=== PATIENT | male | born 1940 | race Caucasian/White ===

== ENCOUNTER → 2016-12-30 | Outpatient (CLI) | payer OTHER, BC | LOC: FCPNEURO 21:00 | PROVIDERS: ATTEND Internal Medicine Sleep Medicine | DX: G47.33 Obstructive sleep apnea (adult) (pediatric) (principal); G47.61 Periodic limb movement disorder ==

== ENCOUNTER → 2016-12-31 | Outpatient (CLI) | payer OTHER, BC | LOC: FIMAGING 14:43 → EDSTATUS 14:45 | DX: M79.662 Pain in left lower leg (principal) ==

== ENCOUNTER 2018-03-07 11:00 | Inpatient (IN) | payer OTHER, BC ==
[2018-03-23] MEDS ORDERED: ROPIVACAINE 0.2% 80 MG, EPINEPHrine 0.2 MG, KETOROLAC TROMETHAMINE 30 MG in SYRINGE 0 ML IU ONE (06:00)
[2018-03-23] MEDS ORDERED: TRANEXAMIC ACID 3,000 MG in NS (SYRINGE) 50 ML IRR ONE (06:00)
[2018-03-23] MEDS ORDERED: TRANEXAMIC ACID 3,000 MG/50 ML BAG IRR ONE (06:52)
[2018-03-23] MEDS ORDERED: VANCOMYCIN 1 GM VIAL ONE (06:52)
--- NOTE | 2018-03-23 07:12 | PDHPUP ---
History & Physical Update H&P update statement: This history and physical update is based on an assessment of the patient which was completed after admission or registration (within 24 hours), but prior to the surgery/procedure. H&P update: H&P reviewed & patient examined, no change in patient's condition since H&P completed
[2018-03-23] MEDS ORDERED: DEXAMETHASONE 4 MG/ML VIAL IVP ONE (09:39)
[2018-03-23] MEDS ORDERED: ACETAMINOPHEN 325 MG TAB PO ONE (09:39)
[2018-03-23] MEDS ORDERED: ceFAZolin 2 GM/DEXTROSE 100 ML IV ONE (09:39)
[2018-03-23] MEDS ORDERED: FAMOTIDINE 20 MG TAB PO ONE (09:39)
[2018-03-23] MEDS ORDERED: LR 1,000 ML IV ONE (10:01)
[2018-03-23] MEDS ORDERED: MIDAZOLAM 2 MG/2 ML VIAL ONE (10:48)
[2018-03-23] MEDS ORDERED: MIDAZOLAM 2 MG/2 ML VIAL IVP ONE (10:52)
--- NOTE | 2018-03-23 10:54 | PDANEPAE ---
ANE History of Present Illness knee ANE Past Medical History - Cardiovascular History Hx Hypertension: Yes Hx Arrhythmias: Yes Hx Chest Pain: No Hx Coronary Artery / Peripheral Vascular Disease: No Hx CHF / Valvular Disease: No Hx Palpitations: No Cardiovascular History Comment: afib - Pulmonary History Hx COPD: No Hx Asthma/Reactive Airway Disease: No Hx Recent Upper Respiratory Infection: No Hx Oxygen in Use at Home: No Hx Sleep Apnea: Yes Sleep Apnea Screening Result - Last Documented: Positive Pulmonary History Comment: tao positive uses cpap - Neurologic History Hx Cerebrovascular Accident: No Hx Seizures: No Hx Dementia: No - Endocrine History Hx Diabetes: No Hypothyroid: No Hyperthyroid: No Obesity: mild Endocrine History Comment: hx of thyroid CA with thyroidectomy and parathyroidectomy - Renal History Hx Renal Disorders: No - Liver History Hx Hepatic Disorders: Yes Hepatic History Comment: HEPATITIS A - Neurological & Psychiatric Hx Hx Neurological and Psychiatric Disorders: No - Cancer History Hx Cancer: Yes Cancer History Comment: thyroid - Congenital Disorder History Hx Congenital Disorders: No - GI History GERD: mild Hx Gastrointestinal Disorders: Yes Gastrointestinal History Comment: Acid reflux - controlled - Other Health History Other Health History: wears glasses. bilateral hearing aides. full dentures. - Chronic Pain History Chronic Pain: Yes (right knee) - Surgical History Prior Surgeries: cataracts- bilaterally 2018. 02/26/16 right knee scope with Luis Alfredo [place] [facility] [place]. thyroidectomy and parathyroidectomy 30 yrs ago. tonsillectomy as a child ANE Review of Systems Review of Systems: - Exercise capacity Exercise capacity: >=4 METS METS (RN): 4 METS ANE Patient History - Allergies Allergies/Adverse Reactions: fluorescein Allergy (Verified 02/26/18 10:24) Swelling/neck,face,throat Penicillins Allergy (Verified 03/21/18 14:52) Unknown shellfish derived Allergy (Verified 03/23/18 09:17) Swelling/neck, face, throat Sulfa (Sulfonamide Antibiotics) Allergy (Verified 02/26/18 10:24) Rash iodine Allergy (Uncoded 02/26/18 10:24) Swelling/neck,face,throat IV contrast Allergy (Uncoded 02/26/18 10:24) Swelling/neck,face,throat peanuts Allergy (Uncoded 02/26/18 10:24) Anaphylaxis - Home Medications Home medications: home medication list seen and reviewed Home Medications: Levothyroxine [Synthroid 100 mcg (RX)] 100 mcg PO DAILY06 11/16/13 [Last Taken 03/23/18 05:20] Aspirin [Aspirin 81mg (*)] 81 mg PO DAILY AT 6PM 02/20/18 [Last Taken 1 Month Ago ~02/21/18] Cholecalciferol Vit D3 [Vitamin D3 (*)] 1,000 units PO DAILY AT 6PM 02/20/18 [ Last Taken 1 Month Ago ~02/21/18] EPINEPHrine [Epipen 0.3 MG] 0.3 mg IM ONCE PRN 02/20/18 [Last Taken Unknown] MAG CARB/AL HYDROX/ALGINIC AC [Gaviscon Liquid] 15 ml PO Q6H PRN 02/20/18 [Last Taken 03/21/18] Metoprolol Tartrate [Lopressor 25 mg (*)] 12.5 mg PO BID 02/20/18 [Last Taken 06:20] Ranitidine HCl 150 mg PO BID 02/20/18 [Last Taken 03/23/18 06:20] - NPO status NPO Since - Liquids (Date): 03/23/18 NPO Since - Liquids (Time): 07:30 NPO Since - Solids (Date): 03/22/18 NPO Since - Solids (Time): 22:00 - Smoking Hx Smoking Status: Former smoker - Family Anes Hx Family Hx Anesthesia Complications: none ANE Labs/Vital Signs - Vital Signs Blood Pressure: 125/98 Heart Rate: 74 Respiratory Rate: 18 O2 Sat (%): 96 Height: 173.99 cm Weight: 97.522 kg ANE Physical Exam - Airway Mallampati Score: Class 2 Mouth exam: normal dental/mouth exam - Pulmonary Pulmonary: no respiratory distress - Cardiovascular Cardiovascular: regular rate and rhythym - ASA Status ASA Status: II ANE Anesthesia Plan Anesthesia Plan: spinal Regional Anesthesia: adductor canal FNB
[2018-03-23] MEDS ORDERED: PROPOFOL/EMULSION 500 MG/50 ML BOTTLE IV ONE (10:56)
[2018-03-23] MEDS ORDERED: LIDOCAINE 2% 5 ML SDV ONE (10:56)
[2018-03-23] MEDS ORDERED: BUPIVACAINE/DEXTROSE 7.5MG/ML 2 ML SPINAL AMP SP ONE (10:56)
[2018-03-23] MEDS ORDERED: PROPOFOL 200 MG/20 ML VIAL ONE (11:57)
[2018-03-23] MEDS ORDERED: ROPIVACAINE HCL 150 MG/30 ML INJ ONE (11:58)
[2018-03-23] MEDS ORDERED: CYCLOBENZAPRINE 10 MG TAB PO PRN (12:27)
[2018-03-23] MEDS ORDERED: POLYETHYLENE GLYCOL 3350 17 GM PKT PO PRN (12:27)
[2018-03-23] MEDS ORDERED: PROMETHAZINE HCL 25 MG SUPPR PR PRN (12:27)
[2018-03-23] MEDS ORDERED: TEMAZEPAM 15 MG CAP PO PRN (12:27)
[2018-03-23] MEDS ORDERED: PROMETHAZINE HCL 25 MG/ML INJ IVP PRN (12:27)
[2018-03-23] MEDS ORDERED: LACTULOSE 20 GM/30 ML UDCUP PO PRN (12:27)
[2018-03-23] MEDS ORDERED: diphenhydrAMINE 25 MG CAP PO PRN (12:27)
[2018-03-23] MEDS ORDERED: ONDANSETRON 4 MG/2 ML VIAL IVP PRN ×2 (12:27→12:41)
[2018-03-23] MEDS ORDERED: ONDANSETRON DISINTEGRATING 4 MG TAB PO PRN (12:27)
[2018-03-23] MEDS ORDERED: DIPHENOXYLATE/ATROPINE LOMOTIL 1 TAB PO PRN (12:27)
[2018-03-23] MEDS ORDERED: METOCLOPRAMIDE 10 MG/2 ML VIAL IVP PRN (12:27)
[2018-03-23] MEDS ORDERED: oxyCODONE IR 5 MG TAB PO PRN (12:27)
[2018-03-23] MEDS ORDERED: MAGNESIUM HYDROXIDE 30 ML UDCUP PO PRN (12:27)
[2018-03-23] MEDS ORDERED: BISACODYL 10 MG SUPP PR PRN (12:27)
--- NOTE | 2018-03-23 12:27 | POSTOPPROG ---
Post Op Note Date of Operation: 03/23/18 Surgeon: Chitra Currie Embedded Software Test Engineer: Stephanie Currie PAC Anesthesiologist: Ramos Anesthesia: Spinal (adductor canal block), Other (Specify) Pre-op Diagnosis: left knee OA Post-op Diagnosis: same Indication: left knee pain Procedure: Left medial PKA, robot assisted Findings: severe left knee OA Inf/Abcess present in the surg proc area at time of surgery?: No EBL: 50-100
[2018-03-23] MEDS ORDERED: EPINEPHRINE 0.3 MG IM PRN (12:30)
[2018-03-23] MEDS ORDERED: LR 1,000 ML IV SCH (12:30)
[2018-03-23] MEDS ORDERED: NALOXONE HCL 0.4 MG/ML INJ IVP PRN (12:41)
[2018-03-23] MEDS ORDERED: fentaNYL 100 MCG/2 ML INJ IVP PRN (12:41)
[2018-03-23] MEDS ORDERED: HYDROmorphONE/DILAUDID 2 MG/ML INJ IVP PRN (12:41)
[2018-03-23] MEDS ORDERED: ALBUTEROL 3 ML DEYVIAL IH PRN (12:41)
--- NOTE | 2018-03-23 12:42 | POSTANESTH ---
Post Anesthetic Evaluation Cardiovascular Status: Normal, Stable Respiratory Status: Normal, Stable Level of Consciousness/Mental Status: Moderately Sleepy Pain Control: Adequate, Prn Tx Ordered Nausea/Vomiting Control: Adequate, Prn Tx Ordered Complications Possibly Related to Anesthesia: None Noted
--- NOTE | 2018-03-23 14:46 | PDMN ---
Medical Necessity Medical necessity: [facility] [place] S700 Knee Arthroplasty, Total: 77 yo s/p L TKA, meets IP criteria for advanced age and hx afib, HTN, AGUSTO uses CPAP, hx thyroid ca w/p parathyroidectomy, and Hep A.
[2018-03-23] MEDS: ACETAMINOPHEN 325 MG TAB PO SCH ×2 (18:25→23:53)
[2018-03-23] MEDS: ceFAZolin 2 GM/DEXTROSE 100 ML IV SCH (18:26)
[2018-03-23] MEDS: FAMOTIDINE 20 MG TAB PO SCH (21:07)
[2018-03-23] MEDS: METOPROLOL TARTRATE 25 MG TAB PO SCH (21:07)
[2018-03-23] MEDS: SENNOSIDES/DOCUSATE SODIUM TAB PO SCH (21:07)
[2018-03-23] MEDS: ASPIRIN 81 MG CHEWABLE TAB PO SCH (21:08)
[2018-03-24] MEDS: ceFAZolin 2 GM/DEXTROSE 100 ML IV SCH (04:04)
[2018-03-24] MEDS: ACETAMINOPHEN 325 MG TAB PO SCH (05:00)
[2018-03-24] MEDS ORDERED: LEVOTHYROXINE 100 MCG TAB PO SCH (06:00)
[2018-03-24 08:57] VITALS: BP 133/68
[2018-03-24] MEDS: SENNOSIDES/DOCUSATE SODIUM TAB PO SCH (09:08)
[2018-03-24] MEDS: FAMOTIDINE 20 MG TAB PO SCH (09:08)
[2018-03-24] MEDS: METOPROLOL TARTRATE 25 MG TAB PO SCH (09:08)
[2018-03-24] MEDS: ASPIRIN 81 MG CHEWABLE TAB PO SCH (09:08)
--- NOTE | 2018-03-24 10:47 | SOAPPROG ---
SOAP Progress Note Assessment/Plan: Assessment: Patient is doing well POD 1 s/p left medial PKA Pain management: pain is well controlled on oral pain meds. VTE ppx: recommend aspirin daily for 3 weeks, cont JAY and SCDs Anemia: level is expected initially postop. Asymptomatic. Continue to monitor D/c planning:patient has done much better than anticipated. Patient is stable, BP stable, pain well controlled and patient is eager for discharge to home. May d/c to home today pending release from PT postop urinary retention: straight cath'd yesterday, resolved today, recommend follow up with PCP for urinary frequency postop Plan: 03/24/18 10:46 Subjective: Patient is doing well, mild pain ,denies SOB, chest pain and N/V Objective: Vital Signs Temp Pulse Resp BP Pulse Ox 36.3 C 68 13 133/68 H 93 03/24/18 08:00 03/24/18 09:08 03/24/18 08:00 03/24/18 09:08 03/24/18 08:00 Laboratory Results 03/24/18 04:35 03/24/18 04:35 03/23/18 03/24/18 03/25/18 05:59 05:59 05:59 Intake Total 2700 400 Output Total 1815 350 Balance 885 50 LL:E incision dressing is clean and dry, NVI, +pf/df ICD10 Worksheet Patient Problems: Problems Problem Status Onset Primary localized osteoarthritis of left knee Acute
--- NOTE | 2018-03-24 11:33 | GDS ---
ADMISSION DIAGNOSIS: Left knee osteoarthritis. DISCHARGE DIAGNOSIS: Left knee osteoarthritis. PROCEDURE: Left partial knee arthroplasty medial compartment, robotic-assisted. VTE PROPHYLAXIS: Recommend aspirin 81 mg twice daily for 4 weeks. BRIEF DESCRIPTION OF HOSPITAL STAY: Patient was admitted for an elective joint arthroplasty. The pa bradley tolerated the procedure well and has passed physical therapy. The patient was given appropriat e antibiotic prophylaxis and venous thromboembolism prophylaxis. The patient's pain was well control led on oral pain medication, patient was holding down food, and had urinated. Decision was made to d ischarge the patient. The patient was given post-operative prescriptions pre-operatively. PLAN: To follow up with Dr. Currie at [facility] in 3 weeks. /[id number]/MODL
--- NOTE | 2018-03-24 19:36 | GOP ---
DATE OF OPERATION: 03/23/2018 SURGEON: Sindy Currie MD AIR PUMPER: DORON Merino. ANESTHESIA: Spinal. PREOPERATIVE DIAGNOSIS: Left knee osteoarthritis. POSTOPERATIVE DIAGNOSIS: Left knee osteoarthritis. PROCEDURE PERFORMED: Left knee medial unicompartmental partial knee replacement robotic assist. FINDINGS: ESTIMATED BLOOD LOSS: 30 cc. INDICATIONS: The patient is a 77-year-old male with severe and progressive pain and deformity of the left knee unresponsive to conservative care. The risks and benefits of surgical intervention were explained in detail. DESCRIPTION OF PROCEDURE: The patient was brought to the operating room and placed on the table in supine position. Spinal anesthesia was induced without difficulty. A pneumatic tourniquet was applied about the left proximal thigh and the leg was prepped and draped in sterile fashion. Attention was turned first to the distal aspect of the left femur. At 3 cm proximal to the lateral rise of the femur, 2 percutaneous half pins were placed for fixation of the femoral array. In a similar fashion, 2 pins were placed anterolateral on the tibia for fixation of the tibial array. External land marking and registration of the hip center was performed without difficulty. After exsanguination by elevation, the tourniquet was inflated to 250 mmHg. Incision was made from the tibial tuberosity to the superior pole of the patella. Dissection was carried out through the subcutaneous tissue to the deep fascia using Bovie electrocautery for hemostasis. Medial parapatellar arthrotomy was carried out to the superior pole of the patella. The medial collateral ligament was elevated and the infrapatellar fat pad was resected. Internal femoral and tibial registration was carried out without difficulty and the femoral and tibial checkpoints were placed and verified for accuracy. Attention was turned to the femur. The foot print for the size 4 femoral component was cut with the 6 mm bur using the Preedo robotic system and verified for accuracy against the CT based plan. The hole was cut for the femoral post. In a similar fashion, the 6 mm bur was used to cut the foot print for the size 4 tibial component using the Preedo system and verified for accuracy against the CT based plan. Attention was turned to the posterior aspect of the knee and remnants of the medial meniscus were excised. The posterior capsule was injected with ropivacaine, epinephrine and Toradol. Trial reduction was carried out and there was excellent range of motion, alignment and stability using the size 4 femoral component and the size 4 tibial component. All trials were then removed. The joint was thoroughly irrigated and carefully dried. One package of cement and 1 gram of vancomycin were mixed in the vacuum mixer and placed on the fixation surfaces of all components. The components were implanted and all excess cement was thoroughly removed. Implant placement was verified against the CT view plan and found to be excellent. The tourniquet was deflated and all bleeders were coagulated. The wound was thoroughly irrigated and closed using interrupted sutures of 2-0 Vicryl for the joint capsule. The subcu was closed with 3-0 Vicryl and the skin with 4-0 Monocryl. Dermabond and Steri-Strips were applied, followed by a compressive dressing. The patient was then moved from the operating room to the recovery room in good condition, having tolerated the procedure well. PATHOLOGY: Severe medial compartment osteoarthritis. /[id number]/MODL MTDD
== END 2018-03-24 12:55 | disposition home or self-care (01) | DRG 517 ==
LOC: F3N 03-23 08:42
PROVIDERS: ADMIT Orthopaedic Surgery; ATTEND Orthopaedic Surgery
DX: M17.12 Unilateral primary osteoarthritis, left knee (principal); D64.89 Other specified anemias; R33.9 Retention of urine, unspecified; N99.89 Other postprocedural complications and disorders of genitourinary system; G47.33 Obstructive sleep apnea (adult) (pediatric); K21.9 Gastro-esophageal reflux disease without esophagitis; Z85.850 Personal history of malignant neoplasm of thyroid; Z87.891 Personal history of nicotine dependence
CPT/HCPCS: 97116-GP; 97161-GP; C1713; G8978-GP-CJ; G8979-GP-CI; G8980-GP-CI; J0171; J0690; J1100; J1885; J2250; J2704; J2795; J3370